=== PATIENT | female | born 1950 | race Caucasian/White ===

== ENCOUNTER → 2019-05-20 04:00 | Outpatient (REF) | payer SELFPAY | LOC: OLS.ACW200 04:00 | PROVIDERS: Visit Provider Family Medicine | DX: J96.01 Acute respiratory failure with hypoxia (principal); I26.99 Other pulmonary embolism without acute cor pulmonale; R27.9 Unspecified lack of coordination; J84.112 Idiopathic pulmonary fibrosis | CPT/HCPCS: 36416; 85610 ==